=== PATIENT | female | born 1945 | race Caucasian/White ===

== ENCOUNTER 2016-11-02 19:38 | Inpatient (IN) | payer MEDICARE, OTHER ==
[~2016-11-02] VITALS: Ht 160 cm; Wt 68.5 kg
--- NOTE | ~2016-11-02 | CST ---
Cardiac Perfusion Imaging Demographics Patient Name BLAISE Horne Gender Female Patient Number [id number] Race Visit Number [id number] Ethnicity Corporate ID Room Number 502 Accession Number [id number] Height 63 inches Date of 1945 Weight 136 pounds Age 71 year(s) BSA 1.64 m Referring Physician Nissa Hernandez MD BMI 24.09 kg/m Interpreting Physician [facility] Date of study 11/09/2016 King Vignesh Perkins MD Supervising MD/MLP King Vignesh FLETCHER Technologist Valerie Lewis Ordering Physician Rodo Horne Stress Soumya Villegas MD instructor adjunct surgical technician Stress ECG Reading [facility] Nurse Jose Angel Turner Physician King Vignesh Lucero The procedure was explained in detail to the patient. Risks, complications and alternative treatments were reviewed. Written consent was obtained. Medications Reviewed with Patient prior to Procedure. Procedure Procedure Type: Nuclear Stress Test:Cardiac Study SF Procedure Start time: 11/09/2016 08:15 Indications: Elevated cardiac enzymes. Risk Factors The patient risk factors include:hypertension and diabetes mellitus. Conclusions Summary Perfusion Images: The overall quality of the study is good. Left ventricular cavity is noted to be normal on the stress and rest studies. There is no evidence of abnormal lung activity. The right ventricle is not visualized and cannot be assessed. Stress SPECT images demonstrate homogenous tracer distribution throughout the myocardium. Rest SPECT images demonstrate homogenous tracer distribution throughout the myocardium. Gated SPECT imaging reveals normal myocardial thickening and wall motion. The left ventricular ejection fraction was calculated to be 86%. Impression Myocardial perfusion imaging is normal. Overall left ventricular systolic function was normal without regional wall motion abnormalities. There are no previous studies for comparison. Stress Protocols Resting ECG Normal sinus rhythm. Resting HR:86 bpm Resting BP:136/58 mmHg Stress Protocol:Pharmacologic Predicted HR: 151 bpm Test duration: 06:00 min Reason for termination:Infusion complete ECG Findings Normal sinus rhythm. Symptoms No symptoms with Lexiscan infusion. Complications Procedure complication: None. Stress Interpretation Appropriate hemodynamic response to Lexiscan. No significant ST-T wave changes with Lexiscan. ECG portion is negative for ischemia by diagnostic criteria. Imaging Results Summed scores - Summed stress score: 0 - Summed rest score: 0 - Summed difference score: 0 Stress ejection Ejection fraction:86 % EDV :76 ml ESV :11 ml Stroke volume :65 ml LV mass :111 gr Imaging Protocols Rest Stress Isotope:Tc99m Myoview IV Isotope: Tc99m Myoview IV Isotope dose:10.7 mCi Isotope dose:31 mCi Date:11/09/2016 06:35 Date:11/09/2016 08:15 Technique: SPECT Technique: Gated Supine SPECT Supine IV remains in place after procedure. Scan Time:45-60 minutes post Scan Time:45-60 minutes post injection injection Procedure Medications - Regadenoson (Lexiscan) 0.4 mg IV over 10-15 sec. I.V. 0.4 mg. Medications administered per verbal order and read back to physician prior to administration. Medical History Admission Data Admission date: 11/02/2016 Admission Time: 19:38 Hospital Status: Inpatient. Signatures
--- NOTE | ~2016-11-02 | ECH ---
Transthoracic Echocardiography Report (TTE) Demographics Patient Name KINGS WELSH Date of Study 11/03/2016 Patient Number [id number] Visit Number [id number] Date of 1945 Room Number 302 Accession Number [id number] Gender Female Age 71 year(s) Referring Nissa Morrow David Skin Former Clarissa Armendariz Physician RDCS Physician Interpreting Reinier Mclean Full Roll Inspector Physician MD Supervising Ordering Physician Ben LEACH MD/MLP Nurse Stress Rn Clinical Review Conclusions Summary Technically good exam. The estimated left ventricular ejection fraction is 60-65%. Normal wall motion. Mild-moderate mitral regurgitation by color Doppler. Mild-moderate tricuspid regurgitation by color Doppler. Normal pulmonary pressures. Procedure Type of Study TTE procedure:Echo Complete SF. Procedure Date Date: 11/03/2016 Start: 01:26 PM Technical Quality: Good visualization Indications:Elevated Troponin and Diabetes. Appropriate Use Criteria: 9 Height: 63 inches Weight: 136 pounds BSA: 1.64 m Rhythm: NSR HR: 82 bpm BP: 125/44 mmHg M-Mode/2D Measurements LV Diastolic Dimension: 4.18 cm LV Systolic Dimension: 2.47 cm LV Septum Diastolic: 0.75 cm LV PW Diastolic: 0.71 cm AO Root Dimension: 2.67 cm Cardiac Output: 4.46 l/min LA Dimension: 3.19 cm Cardiac Index: 2.72 l/min*m RV Diastolic Dimension: 3.27 cm LA volume index: 26 ml/m LVOT: 1.74 cm LVOT VTI: 22.91 cm RV Base: 3.6 cm LV Stroke volume: 54.45 ml RV Mid: 1.8 cm LV Stroke volume index: 33.2 ml/m TAPSE: 2.1 cm TDI-S': 11 cm/s Doppler Measurements AV Peak Velocity: 1.3 m/s MV Peak E-Wave: 1.21 m/s AV Peak Gradient: 6.76 mmHg MV Peak A-Wave: 0.95 m/s AV Mean Gradient: 3.59 mmHg MV E/A Ratio: 1.28 LVOT Peak Velocity: 1.02 m/s MV P1/2t: 46.5 msec AV Area (Continuity):2.23 cm MV Deceleration Time: 157.5 msec TR Velocity:2.76 m/s MV Area (PHT): 4.73 cm TR Gradient:30.52 mmHg PV Peak Velocity: 0.88 m/s Estimated RAP:3 mmHg PV Peak Gradient: 3.13 mmHg Estimated RVSP: 34 mmHg Estimated PASP: 33.52 mmHg E' Septal Velocity: 0.1 m/s A' Septal Velocity: 0.05 m/s E' Lateral Velocity: 0.11 m/s A' Lateral Velocity: 0.05 m/s RA Area: 15.94 cm Findings Left Ventricle Normal left ventricle size and function. Diastolic assessment reveals normal relaxation. Right Ventricle Normal right ventricle structure and function. Left Atrium Normal left atrial size. Right Atrium Normal right atrial size. Mitral Valve Normal mitral valve structure and function. Mild-moderate mitral regurgitation by color Doppler. Aortic Valve Normal aortic valve structure and function. Tricuspid Valve Normal tricuspid valve structure and function. Mild-moderate tricuspid regurgitation by color Doppler. Normal pulmonary pressures. Pulmonic Valve Normal pulmonic valve structure and function. Pericardial Effusion No evidence of pericardial effusion. Miscellaneous Visualized portions of the aortic root and ascending aorta appear normal in size. Pleural Effusion No evidence of pleural effusion. Contractility Score LV regional wall motion:(0-Non visualized 1-Normal 2-Hypokinesis 3-Akinesis 4-Dyskinesis 5-Aneurysm) Signature
--- NOTE | ~2016-11-02 | DS ---
ADMIT: 11/02/2016 RM/LOC: 502 [facility] MR#: [id number] [address] [facility] [address] [place], [place] [address] KINGS WELSH [address] [place] [address] Discharge Summary SEX: F AGE: 71 : 1945 ADMISSION DATE: 11/02/2016 DISCHARGE DATE: 11/11/2016 DISCHARGE DIAGNOSES: 1. City call patient transferred from [place], [place], diabetic ketoacidosis with severe dehydration and metabolic acidosis. 2. Mild renal insufficiency. 3. Acute on chronic kidney disease. 4. Depression. 5. Hyperlipidemia. 6. Mental status changes. 7. Mild dementia. HISTORY OF PRESENT ILLNESS: Well documented in her H and P. LABORATORY AND DIAGNOSTIC STUDIES: Await her radiographic assessment and lab. This is a limited study. You can see the full lab per her chart. On admission, her white count is 23,000, hemoglobin 9.1, platelet count is 211. Discharge white count was 8.7, hemoglobin 9.3, platelet count 208. Urinalysis was hazy, 3+ blood, 3+ leukocytes. On admission, CK was 4657, MB of 87, troponin 1.68, sodium 135, potassium 4.1, BUN and creatinine 55 and 3.0. Blood sugar of 631. On 2nd day of admission, sodium was 134, potassium 3.6, BUN and creatinine 59 and 3.2, blood sugar 302, phosphorus of 204, HDL cholesterol 58. CK of 4603, MB of 33, troponin of 0.965. Discharge sodium was 142, potassium 3.2, BUN and creatinine 12 and 1.0. Her blood sugars were over 600 on admission. On admission, pH was 7.186, pCO2 of 22, and PO2 was high. Bicarb was 8.3. Her B12 was 348, folic acid 4.3, C-reactive protein 1.24. Her blood culture showed no growth. Urine micro showed no growth. CT of brain normal, CT of the brain chronic left sphenoid sinusitis. Gastric emptying status study showed 100% of activity clearly less than 60 minutes. Chest x-ray showed no acute cardiopulmonary changes. Ultrasound of kidneys shows right renal mild atrophy question medical renal disease. Ultrasound of the abdomen showed cholelithiasis without cholecystitis. Echocardiogram showed with technical exam with estimated left ventricular ejection fraction 60% to 65%. Normal wall motion abnormality. Mild to moderate mitral regurg, mild to moderate tricuspid regurgitation. Normal pulmonary pressures. EKG on admission showed sinus rhythm, probable normal variant. Anterolateral ST abnormalities suggest myocardial injury and ischemia. Diffuse ST abnormalities due to myocardial ischemia. Stress test showed overall quality of the study is good. Left ventricular cavity is noted to be normal on the stress and rest phase. There was no evidence of abnormal lung activity. The right ventricle is not visualized and cannot be measured. Demonstrate moderate myocardial perfusion imagery is normal. Overall, the left ventricular function was noted with regional wall motion abnormalities. HOSPITAL COURSE: She was admitted to [facility] after a transfer from [facility] as a city-call patient secondary to diversion. She has had a history of DKA in the past. Had been hospitalized there within the last several months. She has an insulin pump and physically is unable to ADMIT: 11/02/2016 RM/LOC: 502 [facility] MR#: [id number] [address] [place] [id number] KINGS WELSH [address] [place] [address] Discharge Summary SEX: F AGE: 71 : 1945 manage it. She was admitted to the intensive care unit, fluid volume resuscitation. DKA protocol, hypotension and Levophed was given. She was seen initially by Dr. Karimi. She had central line placement. In addition, started on IV antibiotics. Cardiology did follow and assist in her care because of elevation in her troponin. Dr. Braswell to see concerns about rhabdomyolysis with underlying CKD. Echocardiogram was performed. CT of brain was performed with fluid volume resuscitation and appropriate followup of her diabetes with and replacement of electrolytes. She had slow but sure improvement over the course of the next several days. Diabetic education was initiated. Difficult situation at this time. Mentally, she is unable to handle her insulin pump. I did discuss this with her son. We continue to replace her electrolytes as appropriate. Her insulin pump was discontinued and she was started on sliding scale insulin On 11/05/2016. Aggressive pulmonary hygiene. Her creatinine has good improvement with hydration with improvement of her severe dehydration and ketoacidosis. Mild elevation in LFTs noted on ultrasound that she has cholelithiasis but no evidence of acute cholecystitis. Speech therapy, physical therapy, and occupational therapy were asked to see and assist in her care. She was continued to be followed by Cardiology. Subsequently, underwent a stress test, which showed no evidence of ischemia well preserved ejection fraction. She subsequently was discharged to a local fdc until she is able to care for herself. Family is able to initially start her on insulin pump. Her long-term prognosis is guarded. She currently will reside here in [place]. She is from [place] and eventually may return to [place]. We will continue to follow while here in [facility]. Odalys Azar MD/ nixon JOB #: [id number] CC: Odalys Azar MD, Attending Physician Odalys Azar MD, Family Physician
--- NOTE | 2016-11-04 10:52 | CO ---
ADMIT: 11/02/2016 RM/LOC: 302 [facility] MR#: [id number] [address] [address] KINGS EWLSH [address] [place] [address] Consultation SEX: F AGE: 71 : 1945 DATE OF CONSULTATION: 11/03/2016 ATTENDING PHYSICIAN: Odalys Azar CONSULTING PHYSICIAN: Joseluis Braswell MD REASON FOR CONSULTATION: Acute kidney injury. HISTORY OF PRESENT ILLNESS: The patient is a 71-year-old female, who was transferred over here from [place]. She has a history of insulin-dependent diabetes mellitus, and has a history of previous diabetic ketoacidosis. She was evaluated in [place], and was taken there by the EMS after she was found to be unresponsive at her home. Does not know how long she was down for. She was noted to be in diabetic ketoacidosis and required an ICU level of care. She was transferred to us for that reason. At the time of this encounter, she is drowsy. She is unable to give me a history and her history is obtained through her chart. I reviewed her records from her recent hospitalization in July in [place] and it appears she had an acute kidney injury at that time with a creatinine of 2.3 that had improved to 1.0 upon discharge. She is on an insulin pump for her management of diabetes and her blood sugars have been running high while she has been here. She has received appropriate therapy for diabetic ketoacidosis and her sugars are now better. She continues to have high anion gap metabolic acidosis that is being treated with fluids and insulin. She has also been hypotensive for which she is on Levophed at this time. REVIEW OF SYSTEMS: Unobtainable secondary to the patient's condition. PAST MEDICAL HISTORY: 1. Insulin-dependent diabetes mellitus. 2. Diabetic ketoacidosis previously. 3. Metabolic acidosis. 4. Type 1 diabetes mellitus. 5. Depression. 6. Hypertension. 7. GERD. 8. Dyslipidemia. ALLERGIES: ASPIRIN. MEDICATIONS: Reviewed in the chart. SOCIAL HISTORY: According to her chart from [place], she is retired. She lives in [place]. No history of alcohol or tobacco use. FAMILY HISTORY: Father had colon cancer, and mother had uterine cancer. ADMIT: 11/02/2016 RM/LOC: 302 [facility] MR#: [id number] [address] [address] KINGS WELSH [address] [place] [address] Consultation SEX: F AGE: 71 : 1945 PHYSICAL EXAMINATION: VITAL SIGNS: Temperature 99.8 Fahrenheit, pulse 92, blood pressure 128/48, saturating 97% on room. GENERAL: She is somnolent in bed. HEENT: Head is nontraumatic and normocephalic. Dry mucosa. CVS: Regular rate and rhythm. S1 and S2. No rubs, murmurs, or gallops. CHEST: Decreased breath sounds bilaterally. ABDOMEN: Soft. EXTREMITIES: No edema. SKIN: She has a bruise on her left knee. PSYCHIATRIC: Unable to assess secondary to patient condition. NEUROLOGIC: She opens eyes and responds to verbal condition. Otherwise, neurologic exam is limited secondary to patient's condition. LABORATORY DATA: Reviewed. BMP with sodium 134, potassium 3.6, CO2 of 15, creatinine is 3.2, it was 3.0 yesterday. Her phosphorus is 2.4, calcium is 7.1. Her CK level is 4657. Her CBC showed an elevated white count of 22.8, hemoglobin was 9.5, and platelet count is 242. No urine studies available to me for my review at this time. She had a chest x-ray yesterday, which did not show any acute cardiopulmonary pathology. Renal ultrasound has been ordered and is pending. ASSESSMENT AND PLAN: 1. Acute kidney injury-baseline creatinine was around 1.2 in July 2016. Her acute kidney injury is likely a combination of prerenal acute kidney injury secondary to dehydration plus rhabdomyolysis. I will check urine studies to evaluate further. Continue supportive care and monitor her kidney function closely. 2. Hypophosphatemia-monitor especially with the use of insulin at this time. 3. Diabetic ketoacidosis-she continues to receive insulin and IV fluids. Hemodynamics seem to be better, but she continues to require some pressor support. She is on antibiotics as well. Thank you for this consultation. Please do not hesitate to contact with any questions. Joseluis Braswell MD/ nixon JOB #: [id number] CC: Odalys Azar, Attending Physician Odalys Azar, Family Physician
--- NOTE | 2016-11-04 11:52 | HP ---
ADMIT: 11/02/2016 RM/LOC: 302 [facility] MR#: [id number] 26[address] [facility] [address] [place] [phone] KINGS WELSH [address] [place] [address] History and Physical SEX: F AGE: 71 : 1945 DATE OF SERVICE: CHIEF COMPLAINT: Unresponsiveness. HISTORY OF PRESENT ILLNESS: Ms. Welsh is a 71-year-old woman with history of diabetes mellitus, on insulin pump. She was brought in by EMS after she was found unresponsive at her house. She was in respiratory distress requiring 6 L of oxygen at that time. She was noted to be hypotensive in the ER and also received Narcan without much improvement in her mental status. Per the notes, the insulin pump in her abdomen was off. She was noted to have blood sugar of 855 and her labs were consistent with diabetic ketoacidosis. She was started on insulin drip after insulin bolus. She also received 4 L of normal saline bolus prior to transfer. At present, the patient is arousable and unable to give any history. She complains of abdominal pain. PAST MEDICAL HISTORY: Insulin-dependent diabetes mellitus, anemia, hyperlipidemia, GERD, recurrent DKA, anxiety, depression, hyperlipidemia. ALLERGIES: TO ASPIRIN. HOME MEDICATIONS: Include: 1. Celexa 20 mg. 2. Lipitor 20 mg. 3. Lisinopril 2.5 mg. 4. Calcium with vitamin D. FAMILY HISTORY: Unable to obtain as patient is not answering any questions. REVIEW OF SYSTEMS: Complete review of systems unable to obtain as patient is not able to answer anything at this time. PHYSICAL EXAMINATION: VITAL SIGNS: Current temperature 96.8, heart rate 89, blood pressure 92/36, respirations 18, 97% on 2 L. GENERAL: She is drowsy, arousable to physical stimuli, otherwise in no acute distress. CHEST: Decreased breath sounds bilaterally. CARDIOVASCULAR: S1, S2 heard. Regular rate and rhythm. ABDOMEN: Soft. Diffuse tenderness to palpation. Active bowel sounds. MUSCULOSKELETAL: There is a bruise on the left knee and mildly tender to palpation. SKIN: There is a superficial skin ulcer on her 2nd toe on the left foot and right foot great toe. PSYCH: Currently drowsy. DATA REVIEW: Outside hospital records reviewed. Her BMP at [facility] showed potassium of 4.9, sodium 130, creatinine of 3, anion gap to 9.9, albumin of 3, glucose at 55. WBC count was 20.3, hemoglobin 8.8, INR 1.19, TSH 2.96. Serum ketones positive. A pH now is 7.186. She had elevated CK level of 562, ADMIT: 11/02/2016 RM/LOC: [address] [place] [address] MR#: [id number] [address] [place] [id number] KINGS WELSH [address] [place] [address] History and Physical SEX: F AGE: 71 : 1945 troponin 0.76. UA was within normal limits except for 1000 glucose. Urine drug screen was negative. Chest x-ray was within normal limits per the ER doctor. ASSESSMENT: 1. Diabetic ketoacidosis. 2. Septic shock. 3. Uncontrolled diabetes mellitus. 4. Acute on chronic kidney disease. 5. Depression. 6. Hyperlipidemia. PLAN: Admit to ICU. She is requiring Levophed to maintain her blood pressure. She already received 4 L of normal saline bolus. Given her low pH, I will continue with another liter of half-normal saline bolus with 75 mEq of sodium bicarb. Continue insulin drip per DKA protocol. We will replace electrolytes and hydrate aggressively. She is having poor urine output. We will monitor it closely. For the left knee bruise, we will get an x-ray to rule out any fracture. We will also check cardiac enzymes every 6 hours x2 and add on amylase and lipase to her labs. Total time spent more than 60 minutes. We will get central line for IV access as she is requiring pressors. Sofia Karimi MD/ nixon JOB #: [id number] CC: Odalys Azar, Attending Physician Odalys Azar, Family Physician
--- NOTE | 2016-11-05 10:08 | OR ---
ADMIT: 11/02/2016 RM/LOC: 302 [facility] MR#: [id number] [address] [address] KINGS WELSH [address] [place], [place] [address] [address] Operative/Delivery Room Report SEX: F AGE: 71 : 1945 SURGERY DATE: 11/02/2016 SURGEON: Kevin Wong MD PREOPERATIVE DIAGNOSIS: Diabetic ketoacidosis. POSTOPERATIVE DIAGNOSIS: Diabetic ketoacidosis. PROCEDURE: Right internal jugular vein triple-lumen central line insertion under ultrasound guidance. ANESTHESIA: Local. DESCRIPTION OF PROCEDURE: The right neck was prepped and draped in the standard surgical fashion. Local anesthetic was used to anesthetize the skin and subcutaneous tissue overlying the internal jugular vein. This was cannulated under ultrasound guidance with a large gauge needle. A guidewire was advanced into the superior vena cava. In a sterile Seldinger technique, a triple-lumen catheter was advanced over the guidewire and the guidewire was withdrawn. Caps were placed and the catheter ports were all aspirated easily and flushed with saline. The catheter was secured to the skin with the device and silk suture. A dressing was placed. The patient tolerated the procedure well and there were no immediate complications. Kevin Wong MD/ nixon JOB #: [id number] CC: Odalys Azar, Attending Physician Odalys Azar, Family Physician
--- NOTE | 2016-11-12 09:31 | CO ---
ADMIT: 11/02/2016 RM/LOC: 302 [facility] MR#: [id number] [address] [address] [place] [address] [facility] [place] [address] Consultation SEX: F AGE: 71 : 1945 DATE OF CONSULTATION: 11/03/2016 ATTENDING PHYSICIAN: Odalys Azar CONSULTING PHYSICIAN: Vignesh Gale MD REASON FOR CONSULTATION: Elevated cardiac enzymes. HISTORY OF PRESENT ILLNESS: The patient is a 71-year-old, female with no known history of coronary artery disease. She actually lives in [place] and was found down in her home unresponsive. She is a type 1 diabetic and has an insulin pump, however, her insulin pump was not connected at that time. She was found to be with blood sugars in the 800s and she was in DKA. Because [place]'s ICU was on diversion, she was flown down to [facility]. She does not respond to verbal stimuli. She does moan, however does not answer any questions, so all of the information is taken from old records and from the nursing staff. She has a history of diabetes with insulin pump and hyperlipidemia, but do not have any known history of coronary artery disease. She did have elevated cardiac enzymes when she was admitted, and her renal function was worse than previous. PAST MEDICAL HISTORY: 1. Diabetes. 2. Hyperlipidemia. 3. Anemia. 4. GERD. 5. Anxiety. 6. Depression. 7. Admission in July of 2016 for DKA. FAMILY HISTORY: Unknown. REVIEW OF SYSTEMS: Unable to obtain due to patient's mental status. SOCIAL HISTORY: Unknown. She does have a son, but he is not here in the room today. PHYSICAL EXAMINATION: Per Dr. Gale: VITAL SIGNS: Temp 98.2, pulse 82, respirations 27, blood pressure 125/44, O2 saturation 97% GENERAL: The patient is nonresponsive. SKIN: [place], warm and dry. EYES: Sclerae clear. No xanthelasmas. ENT: Oral mucosa is pink and moist. No jugular venous distention or carotid bruits. CHEST: Respirations are even and unlabored. Lungs are clear to auscultation. HEART: Regular rate and rhythm. Normal S1, S2. No murmurs, rubs or gallops. ABDOMEN: Soft and nontender. ADMIT: 11/02/2016 RM/LOC: 302 [facility] MR#: [id number] [address] [address] [place] [address] [place] [address] Consultation SEX: F AGE: 71 : 1945 MUSCULOSKELETAL: Gait is normal. EXTREMITIES: Peripheral pulses palpable. No clubbing, cyanosis or edema. PSYCHIATRIC: Alert and oriented. Mood and affect are appropriate. DIAGNOSTICS: Sodium 134, potassium 3.6, chloride 104, carbon dioxide 15, BUN of 59, glucose of 407, creatinine 3.2. AST of 94 with an ALT of 33. Amylase of 11, lipase of 41. Mag of 2.1. GFR 14. CK of 2085 and 4657, MB of 56.2 and 87.1 with a troponin of 0.449 and 1.680. White blood count of 22.8 with red blood count 3.77, hemoglobin 9.5, hematocrit 29.7 with a platelet count of 242. ASSESSMENT: Per Dr. Gale. 1. Elevated troponin. 2. Diabetic ketoacidosis. 3. Hypotension. PLAN: Per Dr. Gale: Her EKG has nonspecific ST-T wave changes. I will check an echocardiogram to assess her left ventricular function and to assess for any valvular abnormalities. If her EF is down or there is other signs of ischemia such as wall motion abnormalities, we will consider heparin drip. We will add an aspirin after the CT of her head is cleared for a bleed and she is already taking a statin. She will need an ischemic evaluation in the future when she is more stable. We will continue to monitor symptoms and diagnostics and amend our plan accordingly. Thank you for allowing us to participate in the care of this patient. KARINA Dunlap / Vignesh Gale MD / nixon JOB #: [id number] CC: Odalys Azar, Attending Physician Odalys Azar, Family Physician
[2016-11-12] MEDS ORDERED: CELEXA DPS20 MG PO (18:59)
[2016-11-12] MEDS ORDERED: LIPITOR DPS20 MG PO (19:00)
[2016-11-12] MEDS ORDERED: MYCELEX TROCHE10 MG PO (19:00)
[2016-11-12] MEDS ORDERED: LOPRESSOR DPS12.5 MG PO (19:00)
[2016-11-12] MEDS ORDERED: PEPCID DPS20 MG PO (19:00)
[2016-11-12] MEDS ORDERED: GLUTOSE 1537.5 GM PO (19:01)
[2016-11-12] MEDS ORDERED: LEVEMIR100 UNIT/1 SQ (19:01)
[2016-11-12] MEDS ORDERED: TYLENOL DPS325 MG PO (19:01)
[2016-11-12] MEDS ORDERED: MAALOX DPS30 ML PO (19:01)
[2016-11-12] MEDS ORDERED: ZESTRIL DPS2.5 MG PO (19:02)
[2016-11-12] MEDS ORDERED: NOVOLOG100 UNIT/1 SQ (19:03)
[2016-11-21] MEDS ORDERED: CELEXA DPS20 MG PO (20:28)
[2016-11-21] MEDS ORDERED: GLUCAGON EMERGEN1 MG IM (20:29)
[2016-11-21] MEDS ORDERED: GLUTOSE 1537.5 GM PO (20:29)
[2016-11-21] MEDS ORDERED: LEVEMIR100 UNIT/1 SQ (20:29)
[2016-11-21] MEDS ORDERED: LIPITOR DPS20 MG PO (20:30)
[2016-11-21] MEDS ORDERED: ZESTRIL DPS2.5 MG PO (20:30)
[2016-11-21] MEDS ORDERED: LOPRESSOR DPS12.5 MG PO (20:30)
[2016-11-21] MEDS ORDERED: TYLENOL DPS325 MG PO (20:31)
[2016-11-21] MEDS ORDERED: MAALOX DPS30 ML PO (20:31)
[2016-11-21] MEDS ORDERED: PEPCID DPS20 MG PO (20:31)
[2016-11-21] MEDS ORDERED: NOVOLIN R,100 UNITS/ SQ ×2 (20:33→20:34)
--- NOTE | 2016-11-23 08:04 | HP ---
ADMIT: 11/02/2016 RM/LOC: 502 [facility] MR#: [id number] 2620 [facility] [address] [place] [phone] [place] [address] History and Physical SEX: F AGE: 71 : 1945 DATE OF SERVICE: REASON FOR ADMISSION: Hypoglycemia. HISTORY OF PRESENT ILLNESS: Ms. Zapata is a 71-year-old white female, who lives in [place], [place], who was transferred here last week with diabetic ketoacidosis and they did not have detention placement in [place] and subsequently placed in [facility] after a hospitalization with diabetic ketoacidosis, severe dehydration, metabolic acidosis, mild renal insufficiency, acute on chronic disease, depression, hyperlipidemia, mental status changes, and mild dementia. During that hospitalization, she had a mild elevation in cardiac enzymes, but had a cardiac stress test which was negative. Her ultrasound of the kidney showed mild renal atrophy, but no evidence of significant abnormalities. Her abdominal ultrasound did show cholelithiasis, but no evidence of cholecystitis. Her echocardiogram showed ejection fraction of 60% to 65%. Subsequently was transferred to the detention for continued evaluation and care. PAST MEDICAL HISTORY: As above. SOCIAL HISTORY: She lives independently, but with a lot of help from her son, but currently is in the detention recovering from her last hospitalization. No tobacco or alcohol use at this time. FAMILY HISTORY: Noncontributory. REVIEW OF SYSTEMS: She was found by nursing staff at the detention unresponsive with low blood sugar and was subsequently transferred to the hospital for continued evaluation and care. PHYSICAL EXAMINATION: GENERAL: She is sleepy, but alert. Moving all extremities. HEART: Regular rhythm. LUNGS: Clear. Diminished to auscultation. ABDOMEN: Soft, nontender, nondistended. EXTREMITIES: No evidence of edema. LABORATORY AND X-RAY DATA: In the ER, blood cultures were done. White count ADMIT: 11/02/2016 RM/LOC: 502 [facility] MR#: [id number] [address] [address] [place] [facility] [place] [address] History and Physical SEX: F AGE: 71 : 1945 10.7, hemoglobin 11.2, platelet count 367,000. UA shows 1+ protein. CT of brain showed no acute changes. EKG, normal sinus rhythm. Sodium 141, potassium 3.8, BUN and creatinine 22 and 0.9. LFTs were normal. Cardiac enzymes were normal. Chest x-ray was normal. Lactic acid 2.5. Blood sugar 190 after glucose. PH of 7.48, pCO2 of 38, PO2 of 105. ASSESSMENT AND PLAN: A 71-year-old with type 1 diabetes with profound hypoglycemia. We will, at this time, continue close followup, continue close blood sugar monitoring as well as IV glucose until she is able to take dietary intervention with very careful sliding scale insulin when her blood sugar elevates. We would then plan transfer back to the detention when clinically stable hopefully in the next 48 hours. Odalys Azar MD/ nixon JOB #: [id number] CC: Odalys Azar MD, Attending Physician Odalys Azar MD, Family Physician
== END 2016-11-11 14:57 | DRG 637 ==
LOC: 5MS 19:38 → 3ICU 19:38 → 5MS 11-06 10:45
PROVIDERS: ADMIT Internal Medicine Infectious Disease
DX: E10.10 Type 1 diabetes mellitus with ketoacidosis without coma (principal); G93.41 Metabolic encephalopathy; N17.9 Acute kidney failure, unspecified; L89.152 Pressure ulcer of sacral region, stage 2; I95.9 Hypotension, unspecified; I24.8 Other forms of acute ischemic heart disease; M62.82 Rhabdomyolysis; E10.22 Type 1 diabetes mellitus with diabetic chronic kidney disease; N39.0 Urinary tract infection, site not specified; E86.0 Dehydration; E83.39 Other disorders of phosphorus metabolism; L97.519 Non-pressure chronic ulcer of other part of right foot with unspecified severity; E10.649 Type 1 diabetes mellitus with hypoglycemia without coma; I12.9 Hypertensive chronic kidney disease with stage 1 through stage 4 chronic kidney disease, or unspecified chronic kidney disease; I34.0 Nonrheumatic mitral (valve) insufficiency; I36.1 Nonrheumatic tricuspid (valve) insufficiency; D63.1 Anemia in chronic kidney disease; N18.9 Chronic kidney disease, unspecified; E78.5 Hyperlipidemia, unspecified; K21.9 Gastro-esophageal reflux disease without esophagitis; F41.9 Anxiety disorder, unspecified; F32.9 Major depressive disorder, single episode, unspecified; L97.529 Non-pressure chronic ulcer of other part of left foot with unspecified severity; Z96.41 Presence of insulin pump (external) (internal)

== ENCOUNTER 2016-11-19 03:57 | Inpatient (IN) | payer MEDICARE, OTHER ==
[~2016-11-19] VITALS: Ht 160 cm; Wt 66.0 kg
[~2016-11-19 03:57] MED LIST: CELEXA DPS20 MG PO; GLUTOSE 1537.5 GM PO; LEVEMIR100 UNIT/1 SQ; LIPITOR DPS20 MG PO; LOPRESSOR DPS12.5 MG PO; MAALOX DPS30 ML PO; MYCELEX TROCHE10 MG PO; NOVOLOG100 UNIT/1 SQ; PEPCID DPS20 MG PO; TYLENOL DPS325 MG PO; ZESTRIL DPS2.5 MG PO
--- NOTE | 2016-11-21 13:01 | ER ---
ADMIT: 11/19/2016 RM/LOC: 402 [facility] MR#: [id number] 2620 [facility] [address] [place] [id number] [facility] [place] [address] Emergency Room Report SEX: F AGE: 71 : 1945 DATE: 11/19/2016 HISTORY OF PRESENT ILLNESS: The patient is a 71-year-old female, was brought here from [facility] because of altered mental status and low blood sugar. Allegedly, the patient is diabetic and had insulin pump, which is broken and the patient received 20 units of Humalog in the afternoon and after that the patient did not eat and during the night, they noticed that the patient is altered, unknown duration, and they tried to get IV line and give the dextrose 50%, but were not successful to obtain IV line and just gave IM glucagon. The patient was brought to the ER, there is no more history about the patient about any trauma or any other incidents. In the ER, the patient was diaphoretic, eyes were closed, the patient was clenching the teeth and try not to open the mouth. Sometimes, the patient was moaning, but did not follow commands and did not communicate. The patient was localizing the painful stimuli. While trying fast to get an IV line, which was at 1st unsuccessful, we got a prompt IO line and the patient was given 1 amp of dextrose 50%, which changed mental status and the patient opened the eyes during time. While the patient got here, the fingerstick blood sugar was in 30s, and the repeat fingerstick blood sugar multiple time was more than 90. There were no more history about the patient. Also, the patient was doing some posturing during the hypoglycemic event and altered mental status and CT of the head was done, which was negative for any bleeding. PHYSICAL EXAMINATION: HEAD and NECK: At the moment, eyes are open. GENERAL: The patient follows commands and communicates. The patient also answers the questions. CHEST: There are no crackles or wheezing and bilateral clear breath sounds. HEART: Has normal S1, S2 without any murmurs. ABDOMEN: Soft. EXTREMITIES: There are no signs of trauma in the extremities or other parts of the body. Normal peripheral pulses. LABORATORY DATA AND IMAGING: Lab work showed the patient had lactic of 2.5, with WBC of 10.7, hemoglobin of 11.2, and the patient's creatinine of 0.9 and bicarb was 25 with potassium of 3.8, and sodium of 141. UA was normal except for glucose of 300. Chest x-ray did not show any infiltration. EKG was normal sinus rhythm. The patient had O2 saturation of 100% when she came, and we did a jaw-thrust and suctioned mouth and the patient's blood pressure at 1st was systolic 110 ADMIT: 11/19/2016 RM/LOC: 402 [facility] MR#: [id number] [address] [place] [phone] [place] [address] Emergency Room Report SEX: F AGE: 71 : 1945 over 67, and during time, the blood pressure dropped and the MAP went to high 50s and low 60s. The patient received IV fluid per sepsis protocol. The patient was still at borderline and Levophed p.r.n. for keeping the MAP more than 60 was ordered, which has not started. Internal Medicine was consulted and the patient was admitted. When the patient came, she was hypothermic at 94 degrees Fahrenheit and was put on Leeann Hugger, which increased the temperature to 97. DIAGNOSES: 1. Altered mental status. 2. Hypoglycemia. 3. Hypothermia. Jimbo Puentes MD/ nixon JOB #: [id number] CC: Odalys Azar MD, Attending Physician Odalys Azar MD, Family Physician
[2016-11-21] MEDS ORDERED: CELEXA DPS20 MG PO (20:28)
[2016-11-21] MEDS ORDERED: LEVEMIR100 UNIT/1 SQ (20:29)
[2016-11-21] MEDS ORDERED: GLUCAGON EMERGEN1 MG IM (20:29)
[2016-11-21] MEDS ORDERED: GLUTOSE 1537.5 GM PO (20:29)
[2016-11-21] MEDS ORDERED: LOPRESSOR DPS12.5 MG PO (20:30)
[2016-11-21] MEDS ORDERED: ZESTRIL DPS2.5 MG PO (20:30)
[2016-11-21] MEDS ORDERED: LIPITOR DPS20 MG PO (20:30)
[2016-11-21] MEDS ORDERED: TYLENOL DPS325 MG PO (20:31)
[2016-11-21] MEDS ORDERED: PEPCID DPS20 MG PO (20:31)
[2016-11-21] MEDS ORDERED: MAALOX DPS30 ML PO (20:31)
[2016-11-21] MEDS ORDERED: NOVOLIN R,100 UNITS/ SQ ×2 (20:33→20:34)
--- NOTE | 2016-11-30 08:00 | DS ---
ADMIT: 11/19/2016 RM/LOC: 402 [facility] MR#: [id number] [address] [facility] [address] [place] [phone] [place] [address] Discharge Summary SEX: F AGE: 71 : 1945 ADMISSION DATE: 11/19/2016 DISCHARGE DATE: 11/20/2016 DISCHARGE DIAGNOSIS: Hypoglycemia. HISTORY OF PRESENT ILLNESS: Ms. Zapata is a 71-year-old white female, whom I inherited as a City-call patient approximately three weeks ago. She is from [place], [place]. She, at that time, was hospitalized for DKA, type 1 diabetes. History of anemia, hyperlipidemia, gastroesophageal reflux disease. She is currently in the skilled nursing and presented with hypoglycemia and decreased level of consciousness to the emergency room. In the ER and in the ambulance, she did receive treatment for her hypoglycemia. She was subsequently admitted to the hospital for observation. Her initial CT showed no acute changes. EKG, normal sinus rhythm. Sodium of 141, potassium 3.8, BUN and creatinine 22 and 0.9. LFTs were normal. Cardiac enzymes were negative. Lactic acid was 2.5. Blood sugar was 190 after given insulin. ABG showed pH of 7.48, pCO2 of 38, PO2 of 105. She was admitted to the hospital with D5W started. She had Accu-Cheks done every hour. Her diabetic diet was resumed when she was more alert. We subsequently discharged her the following morning and at this time, we did adjust her insulin needs. We will give her an at bedtime snack 45 g of protein. We will follow up in clinic in 4-5 days. We will check a blood sugar daily at 3:00 a.m. and 9:00 p.m. If blood sugars are greater than 200, she will get 2 units of regular insulin. We will follow her in clinic next week. Very labile blood sugars in a type 1 diabetic with episode of hypoglycemia. Odalys Azar MD/ nixon JOB #: [id number] CC: Odalys Azar MD, Attending Physician Odalys Azar MD, Family Physician
== END 2016-11-20 13:30 | DRG 637 ==
LOC: ER 03:57 → 4PCU 06:19
PROVIDERS: ADMIT Internal Medicine
DX: E10.649 Type 1 diabetes mellitus with hypoglycemia without coma (principal); G93.41 Metabolic encephalopathy; F03.90 Unspecified dementia, unspecified severity, without behavioral disturbance, psychotic disturbance, mood disturbance, and anxiety; E10.22 Type 1 diabetes mellitus with diabetic chronic kidney disease; K80.20 Calculus of gallbladder without cholecystitis without obstruction; R68.0 Hypothermia, not associated with low environmental temperature; F32.9 Major depressive disorder, single episode, unspecified; E78.5 Hyperlipidemia, unspecified; D64.9 Anemia, unspecified; K21.9 Gastro-esophageal reflux disease without esophagitis; N18.9 Chronic kidney disease, unspecified